=== PATIENT | female | born 1955 | race Caucasian/White ===

== ENCOUNTER 2017-07-16 05:24 | Emergency (ER) | payer MEDICARE, OTHER ==
[2017-07-16 05:33] VITALS: TEMP 97.2
[2017-07-16] MEDS ORDERED: PREDNISONE 20 MG TAB PO ONE (06:04)
[2017-07-16] MEDS ORDERED: PREDNISONE 20 MG TAB ONE (06:05)
[2017-07-16] MEDS ORDERED: ALBUTEROL/IPRATROPIUM 1 VIAL SOL INH ONE (06:22)
[2017-07-16] MEDS ORDERED: ALBUTEROL/IPRATROPIUM 1 VIAL SOL ONE (06:23)
[2017-07-16 06:33] VITALS: RESP 20
[2017-07-16 07:02] VITALS: BP 125/85; PULSE 79; O2SAT 93
== END 2017-07-16 06:50 | disposition home or self-care (01) | DRG 192 ==
LOC: ED 05:24
DX: J44.9 Chronic obstructive pulmonary disease, unspecified (principal)
CPT/HCPCS: 99283; J7620